=== PATIENT | female | born 1935 | race Caucasian/White ===

== ENCOUNTER 2017-10-05 19:51 | Emergency (ER) | payer MEDICARE, BC | END 2017-10-05 21:50 | disposition home or self-care (01) | LOC: D.ER 19:51 | DX: S01.81XA Laceration without foreign body of other part of head, initial encounter (principal); W19.XXXA Unspecified fall, initial encounter; Y93.89 Activity, other specified; Y92.019 Unspecified place in single-family (private) house as the place of occurrence of the external cause; F03.90 Unspecified dementia, unspecified severity, without behavioral disturbance, psychotic disturbance, mood disturbance, and anxiety ==

== ENCOUNTER 2017-12-24 17:56 | Inpatient (IN) | payer MEDICARE, BC ==
[~2017-12-24] VITALS: Ht 154.9 cm; Wt 50.1 kg
--- NOTE | ~2017-12-24 | OP ---
PATIENT NAME: GERA IGLESIAS MEDICAL RECORD: [id number] :37 LOCATION:[id number] ADMISSION DATE:12/24/17 SURGEON: MAIKEL GOMEZ DO DATE OF OPERATION: 12/25/2017 PROCEDURE PERFORMED: Right hip intramedullary nail. PREOPERATIVE DIAGNOSIS: Displaced right intertrochanteric hip fracture. POSTOPERATIVE DIAGNOSIS: Displaced right intertrochanteric hip fracture. INDICATIONS: Ms. Iglesias is a demented 82-year-old female who fell yesterday onto her right side and sustained a right hip fracture. She was taken to the ER. She is attended to very well by her son. She said she is having frequent falls and is severely demented. Knowing this and knowing that she may not be able to do well, we did not do surgery. He was okay with us proceeding forth of the hip IM nail and told him she will be able to weightbear as tolerated after, but that her percentage chance of mortality about a year after having hip fracture being demented in the 82 is fairly proximal 30%. He was okay with this and understood the risks and benefits of the procedure. The patient was unable to sign the consent for herself, her son did. He has the power of merchandise buyer. SURGEON: Maikel Gomez DO DESCRIPTION OF PROCEDURE: The patient was taken to the operative suite, laid in supine position, given general anesthetic, 1 gram Ancef preoperatively. Timeout was performed. Everyone was in agreeance with the correct side, site, and patient. The patient was then placed in the boots for the [place] table and transferred over to the table, which she was positioned well. The right hip was identified as the correct hip. A reduction was made under C-arm. Once a good reduction was made, the hip had been prepped and draped in sterile fashion. The starting incision was made just proximal to the greater trochanter with a 10 blade and then careful dissection was made down to the greater trochanter itself. A starting pin was put into place and into the intramedullary canal of the femur. Then a starting reamer and opening reamer was used over that and then the guidewire was put into place. A measurement was made to use a 380 mm nail from [employer] nail. After this was done, reaming began, went from a 9 to 10 to 11. The 11 had some chatter, so I decided to put in a 9 nail down and the 9 nail went down and got into good position. The nail was put into place, confirmed distally and proximally, and the lag screw was put in place. A second incision was made where the trocar was entered through the guide and made down to the bone. The guidewire was then shot through the femur into the femoral neck and seen to be in good position on AP and lateral. The reamer was then used to ream over, a 95-mm lag screw was used at that time and compressed. The set screw was then set and then an anti-rotational screw was put into place just above it, measurement of a 75-mm. Once this was put into place and satisfactory, an x-ray on AP and lateral confirmed to be in good position. The perfect [place] was made on the distal locking screws and a 42-mm screw was put in distally. The wounds were then irrigated. The IT band was closed with 0 Vicryl and then the skin was closed with 2-0 Vicryl subcuticular and 4-0 Monocryl ran under the skin subcuticularly and distally two simple inverted interrupted stitches were made with 4-0 Monocryl. The leg was cleaned and Adaptic, 4 x 4s and Tegaderm were placed over each of the 3 incision sites. Blood loss was approximately 100 mL. OPERATIVE REPORT [id number] GERA IGLESIAS COMPLICATIONS: None. TRANSINT:[id number] Voice Confirmation ID: [id number] DOCUMENT ID: [id number] MAIKEL GOMEZ DO at 1816 CC: [id number] DICTATION DATE: 12/25/17 0956 PAPER FINISHER: 12/25/17 1129 ADM IN [facility] [address] [place] [address]
[2017-12-24 19:40] LABS: HEMATOCRIT 46.6 % (36.0-48.0); HEMOGLOBIN 15.7 g/dL (12-16); MCH 32.4 pg (26.0-34.0); MCHC 33.7 g/dL (31.0-37.0); MCV 96.1 fL (80.0-100.0); MEAN PLATELET VOLUME 9.6 fL (7.4-10.4); PLATELET COUNT 242 10x3/uL (130-400); RBC 4.85 10x6/uL (4.00-5.40); RDW 13.7 % (11.5-14.5)
[2017-12-24 19:50] LABS: INR 1.12 (0.85-1.17)
[2017-12-24 19:57] LABS: ALBUMIN 4.1 g/dL (3.4-5.0); ANION GAP 17.9 mmol/L (8-16); BILIRUBIN - TOTAL 1.02 mg/dL (0.2-1.3); CALCIUM 9.8 mg/dL (8.5-10.1); CARBON DIOXIDE 24.7 mmol/L (21.0-32.0); CREATININE - SERUM 1.2 mg/dL (0.6-1.3); POTASSIUM - SERUM 4.6 mmol/L (3.5-5.1); PROTEIN - SERUM 7.2 g/dL (6.4-8.2)
[2017-12-24 20:03] LABS: LYMPHOCYTES 5 % (15-50); NEUTROPHILS 93 % (40-80); PLATELET ESTIMATE NORMAL
[2017-12-24 20:05] LABS: ROULEAUX 1+
[2017-12-24 20:06] LABS: T4 THYROXIN - FREE 1.33 ng/dL (0.76-1.46); THYROID STIMULATING HORMONE 3.22 uIU/mL (0.36-3.74)
[2017-12-24 20:24] LABS: APPEARANCE CLEAR (CLEAR); BILIRUBIN NEGATIVE (NEGATIVE); COLOR YELLOW (YELLOW); GLUCOSE NEGATIVE (NEGATIVE); KETONE NEGATIVE (NEGATIVE); NITRITE NEGATIVE (NEGATIVE); PROTEIN NEGATIVE (NEGATIVE); SPECIFIC GRAVITY 1.015 (1.005-1.020); UROBILINOGEN NORMAL (NORMAL)
[2017-12-25] VITALS (7 sets, daily range): BP systolic 107–128; BP diastolic 63–80; BMI 20.6
[2017-12-25 08:06] LABS: BASOPHILS 0.3 % (0-2); EOSINOPHILS 0.9 % (0-7); HEMATOCRIT 44.7 % (36.0-48.0); HEMOGLOBIN 15.2 g/dL (12-16); IMMATURE GRANULOCYTES 0.4 % (0-5); LYMPHOCYTES 6.2 % (15-50); MCH 32.4 pg (26.0-34.0); MCV 95.3 fL (80.0-100.0); MEAN PLATELET VOLUME 9.2 fL (7.4-10.4); MONOCYTES 6.6 % (2-11); NEUTROPHILS 85.6 % (40-80); PLATELET COUNT 217 10x3/uL (130-400); RBC 4.69 10x6/uL (4.00-5.40); RDW 13.8 % (11.5-14.5)
[2017-12-25 08:11] LABS: WBC 15.9 10x3/uL (4.8-10.8)
[2017-12-25 08:20] LABS: ANION GAP 13.9 mmol/L (8-16); CALCIUM 9.3 mg/dL (8.5-10.1); CARBON DIOXIDE 22.7 mmol/L (21.0-32.0); CREATININE - SERUM 1.2 mg/dL (0.6-1.3); POTASSIUM - SERUM 4.6 mmol/L (3.5-5.1)
[2017-12-26 07:52] VITALS: BP 122/53
[2017-12-26 12:16] VITALS: BP 122/71
[2017-12-26 15:24] VITALS: BP 111/67
[2017-12-26 21:48] VITALS: BP 100/73
[2017-12-27 06:41] LABS: MCH 31.1 pg (26.0-34.0); MCHC 32.6 g/dL (31.0-37.0); MCV 95.5 fL (80.0-100.0); MEAN PLATELET VOLUME 9.6 fL (7.4-10.4)
[2017-12-27 06:56] LABS: HEMATOCRIT 31.6 % (36.0-48.0); HEMOGLOBIN 10.3 g/dL (12-16); RBC 3.31 10x6/uL (4.00-5.40); WBC 9.6 10x3/uL (4.8-10.8)
[2017-12-27 08:57] VITALS: BP 126/77
[2017-12-27 09:44] LABS: ALBUMIN 2.4 g/dL (3.4-5.0); ANION GAP 11.9 mmol/L (8-16); BILIRUBIN - TOTAL 0.77 mg/dL (0.2-1.3); CALCIUM 8.1 mg/dL (8.5-10.1); CARBON DIOXIDE 23.1 mmol/L (21.0-32.0); CREATININE - SERUM 1.2 mg/dL (0.6-1.3); PROTEIN - SERUM 5.3 g/dL (6.4-8.2)
[2017-12-27 12:49] VITALS: BP 131/90
[2017-12-27 14:57] VITALS: Ht 154.9 cm; Wt 50.1 kg
[2017-12-27 20:00] VITALS: BP 137/77
[2017-12-28] VITALS: BP 149/80
[2017-12-28 04:00] VITALS: BP 140/83
[2017-12-28 08:39] VITALS: BP 129/79
[2017-12-28 15:56] VITALS: BP 126/73
[2017-12-28 21:19] VITALS: BP 135/70
[2017-12-29 04:05] VITALS: BP 154/74
[2017-12-29 12:49] LABS: BASOPHILS 0.3 % (0-2); EOSINOPHILS 2.6 % (0-7); HEMOGLOBIN 10.9 g/dL (12-16); IMMATURE GRANULOCYTES 0.7 % (0-5); LYMPHOCYTES 7.8 % (15-50); MCHC 34.1 g/dL (31.0-37.0); MCV 93.8 fL (80.0-100.0); MEAN PLATELET VOLUME 9.5 fL (7.4-10.4); NEUTROPHILS 82.6 % (40-80); RBC 3.41 10x6/uL (4.00-5.40); RDW 13.7 % (11.5-14.5); WBC 10.7 10x3/uL (4.8-10.8)
[2017-12-29 12:51] LABS: PLATELET COUNT 218 10x3/uL (130-400)
[2017-12-29 13:00] VITALS: BP 101/61
[2017-12-29 13:26] LABS: ALBUMIN 2.3 g/dL (3.4-5.0); ANION GAP 11.2 mmol/L (8-16); BILIRUBIN - TOTAL 0.98 mg/dL (0.2-1.3); CARBON DIOXIDE 25.2 mmol/L (21.0-32.0); CREATININE - SERUM 0.9 mg/dL (0.6-1.3); POTASSIUM - SERUM 3.4 mmol/L (3.5-5.1)
[2017-12-29 16:32] VITALS: BP 116/67
[2017-12-29 20:51] VITALS: BP 124/67
[2017-12-30 04:26] VITALS: BP 138/84
[2017-12-30 08:39] VITALS: BP 115/59
[2017-12-30 09:07] LABS: ANION GAP 10.5 mmol/L (8-16); CALCIUM 8.5 mg/dL (8.5-10.1); CARBON DIOXIDE 28.3 mmol/L (21.0-32.0); CREATININE - SERUM 0.9 mg/dL (0.6-1.3)
[2017-12-30 09:11] LABS: POTASSIUM - SERUM 2.8 mmol/L (3.5-5.1)
[2017-12-30 09:14] LABS: BASOPHILS 0.2 % (0-2); EOSINOPHILS 3.7 % (0-7); HEMATOCRIT 32.4 % (36.0-48.0); HEMOGLOBIN 10.9 g/dL (12-16); IMMATURE GRANULOCYTES 0.7 % (0-5); LYMPHOCYTES 9.3 % (15-50); MCH 31.3 pg (26.0-34.0); MCHC 33.6 g/dL (31.0-37.0); MCV 93.1 fL (80.0-100.0); MEAN PLATELET VOLUME 9.8 fL (7.4-10.4); MONOCYTES 7.2 % (2-11); NEUTROPHILS 78.9 % (40-80); RBC 3.48 10x6/uL (4.00-5.40); RDW 13.6 % (11.5-14.5)
[2017-12-30 09:18] LABS: PLATELET COUNT 278 10x3/uL (130-400)
[2017-12-30 12:24] VITALS: BP 122/67
[2017-12-30 20:26] VITALS: BP 140/65
[2017-12-31] VITALS (7 sets, daily range): BP systolic 119–154; BP diastolic 61–84
[2017-12-31 05:33] LABS: BASOPHILS 0.3 % (0-2); EOSINOPHILS 2.5 % (0-7); HEMATOCRIT 30.2 % (36.0-48.0); HEMOGLOBIN 10.1 g/dL (12-16); IMMATURE GRANULOCYTES 1.1 % (0-5); LYMPHOCYTES 7.9 % (15-50); MCH 31.4 pg (26.0-34.0); MCHC 33.4 g/dL (31.0-37.0); MCV 93.8 fL (80.0-100.0); MEAN PLATELET VOLUME 9.9 fL (7.4-10.4); MONOCYTES 7.8 % (2-11); NEUTROPHILS 80.4 % (40-80); RBC 3.22 10x6/uL (4.00-5.40); RDW 13.6 % (11.5-14.5); WBC 10.4 10x3/uL (4.8-10.8)
[2017-12-31 05:45] LABS: PLATELET COUNT 346 10x3/uL (130-400)
[2017-12-31 06:05] LABS: ALBUMIN 2.4 g/dL (3.4-5.0); BILIRUBIN - TOTAL 1.07 mg/dL (0.2-1.3); CALCIUM 8.8 mg/dL (8.5-10.1); CARBON DIOXIDE 28.5 mmol/L (21.0-32.0); CREATININE - SERUM 0.8 mg/dL (0.6-1.3); PROTEIN - SERUM 5.8 g/dL (6.4-8.2)
[2017-12-31 06:12] LABS: POTASSIUM - SERUM 2.5 mmol/L (3.5-5.1)
[2018-01-01 05:20] LABS: BASOPHILS 0.2 % (0-2); EOSINOPHILS 1.4 % (0-7); HEMATOCRIT 30.7 % (36.0-48.0); HEMOGLOBIN 10.2 g/dL (12-16); IMMATURE GRANULOCYTES 1.5 % (0-5); LYMPHOCYTES 8.2 % (15-50); MCH 31.2 pg (26.0-34.0); MCHC 33.2 g/dL (31.0-37.0); MCV 93.9 fL (80.0-100.0); MEAN PLATELET VOLUME 9.4 fL (7.4-10.4); NEUTROPHILS 80.7 % (40-80); PLATELET COUNT 379 10x3/uL (130-400); RBC 3.27 10x6/uL (4.00-5.40); RDW 13.9 % (11.5-14.5); WBC 12.7 10x3/uL (4.8-10.8)
[2018-01-01 06:08] LABS: ALBUMIN 2.5 g/dL (3.4-5.0); BILIRUBIN - TOTAL 1.01 mg/dL (0.2-1.3); CALCIUM 9.1 mg/dL (8.5-10.1); CARBON DIOXIDE 27.5 mmol/L (21.0-32.0); CREATININE - SERUM 0.9 mg/dL (0.6-1.3); POTASSIUM - SERUM 3.5 mmol/L (3.5-5.1); PROTEIN - SERUM 5.6 g/dL (6.4-8.2)
[2018-01-01 08:13] VITALS: BP 124/66
[2018-01-01 10:01] LABS: MAGNESIUM - SERUM 1.7 mg/dL (1.8-2.4); PHOSPHOROUS 2.4 mg/dL (2.5-4.9)
[2018-01-01 12:33] VITALS: BP 115/58
[2018-01-01 16:10] VITALS: BP 109/60
[2018-01-01 19:36] VITALS: BP 122/57
[2018-01-01 23:26] VITALS: BP 127/56
[2018-01-02 04:00] VITALS: BP 140/79
[2018-01-02 05:54] LABS: BASOPHILS 0.3 % (0-2); EOSINOPHILS 4.2 % (0-7); HEMATOCRIT 30.6 % (36.0-48.0); IMMATURE GRANULOCYTES 3.8 % (0-5); LYMPHOCYTES 12.3 % (15-50); MCH 31.2 pg (26.0-34.0); MCHC 32.7 g/dL (31.0-37.0); MCV 95.3 fL (80.0-100.0); MEAN PLATELET VOLUME 9.7 fL (7.4-10.4); MONOCYTES 8.1 % (2-11); NEUTROPHILS 71.3 % (40-80); PLATELET COUNT 409 10x3/uL (130-400); RBC 3.21 10x6/uL (4.00-5.40); RDW 14.4 % (11.5-14.5); WBC 11.9 10x3/uL (4.8-10.8)
[2018-01-02 06:04] LABS: ALBUMIN 2.4 g/dL (3.4-5.0); ANION GAP 7.5 mmol/L (8-16); BILIRUBIN - TOTAL 0.83 mg/dL (0.2-1.3); POTASSIUM - SERUM 3.5 mmol/L (3.5-5.1); PROTEIN - SERUM 5.5 g/dL (6.4-8.2)
[2018-01-02 08:05] VITALS: BP 120/57
[2018-01-02 12:09] VITALS: BP 106/59
[2018-01-02 16:02] VITALS: BP 100/58
[2018-01-02 19:47] VITALS: BP 92/54
[2018-01-03 03:39] VITALS: BP 118/63
[2018-01-03 05:12] LABS: BASOPHILS 0.5 % (0-2); EOSINOPHILS 3.1 % (0-7); HEMATOCRIT 31.8 % (36.0-48.0); HEMOGLOBIN 10.5 g/dL (12-16); IMMATURE GRANULOCYTES 7.3 % (0-5); LYMPHOCYTES 12.2 % (15-50); MCH 32.1 pg (26.0-34.0); MCV 97.2 fL (80.0-100.0); MEAN PLATELET VOLUME 9.8 fL (7.4-10.4); MONOCYTES 6.9 % (2-11); PLATELET COUNT 434 10x3/uL (130-400); RBC 3.27 10x6/uL (4.00-5.40); RDW 14.9 % (11.5-14.5); WBC 13.1 10x3/uL (4.8-10.8)
[2018-01-03 06:00] LABS: ALBUMIN 2.7 g/dL (3.4-5.0); ANION GAP 12.1 mmol/L (8-16); BILIRUBIN - TOTAL 0.81 mg/dL (0.2-1.3); CARBON DIOXIDE 28.2 mmol/L (21.0-32.0); CREATININE - SERUM 1.1 mg/dL (0.6-1.3); POTASSIUM - SERUM 3.3 mmol/L (3.5-5.1); PROTEIN - SERUM 6.1 g/dL (6.4-8.2)
[2018-01-03 08:20] VITALS: BP 107/53
[2018-01-03 12:06] VITALS: BP 109/61
[2018-01-03] MEDS ORDERED: LOVENOX40 MG/0.4 SC (14:55)
[2018-01-03] MEDS ORDERED: ULTRAM50 MG PO (14:55)
== END 2018-01-03 16:22 | DRG 480 ==
LOC: D.ER 17:56 → D.MS 21:45 → D.EDHOLD 21:45 → D.MS 23:59
PROVIDERS: Family Medicine; Orthopaedic Surgery
PROC: 0QS636Z Reposition Right Upper Femur with Intramedullary Internal Fixation Device, Percutaneous Approach (ICD-10-PCS; principal; 2017-12-25 08:00)
DX: S72.141A Displaced intertrochanteric fracture of right femur, initial encounter for closed fracture (principal); E43 Unspecified severe protein-calorie malnutrition; J18.9 Pneumonia, unspecified organism; Z68.1 Body mass index [BMI] 19.9 or less, adult; R64 Cachexia; D62 Acute posthemorrhagic anemia; W19.XXXA Unspecified fall, initial encounter; Z66 Do not resuscitate; G30.9 Alzheimer's disease, unspecified; F02.80 Dementia in other diseases classified elsewhere, unspecified severity, without behavioral disturbance, psychotic disturbance, mood disturbance, and anxiety; R00.0 Tachycardia, unspecified; E87.6 Hypokalemia; E11.22 Type 2 diabetes mellitus with diabetic chronic kidney disease; N18.3 Chronic kidney disease, stage 3 (moderate)

== ENCOUNTER 2018-03-28 13:32 | Inpatient (IN) | payer MEDICARE, BC ==
[~2018-03-28] VITALS: Ht 154.9 cm; Wt 47.6 kg
[~2018-03-28 13:32] MED LIST: LOVENOX40 MG/0.4 SC; ULTRAM50 MG PO
[2018-03-28 15:12] LABS: BASOPHILS 0.3 % (0-2); EOSINOPHILS 2.7 % (0-7); HEMATOCRIT 44.5 % (36.0-48.0); HEMOGLOBIN 14.9 g/dL (12-16); IMMATURE GRANULOCYTES 0.5 % (0-5); LYMPHOCYTES 9.9 % (15-50); MCH 31.8 pg (26.0-34.0); MCHC 33.5 g/dL (31.0-37.0); MCV 94.9 fL (80.0-100.0); MEAN PLATELET VOLUME 9.2 fL (7.4-10.4); MONOCYTES 7.1 % (2-11); NEUTROPHILS 79.5 % (40-80); PLATELET COUNT 261 10x3/uL (130-400); RBC 4.69 10x6/uL (4.00-5.40); RDW 13.3 % (11.5-14.5); WBC 15.3 10x3/uL (4.8-10.8)
[2018-03-28 15:27] LABS: ALBUMIN 3.6 g/dL (3.4-5.0); ANION GAP 12.4 mmol/L (8-16); BILIRUBIN - TOTAL 0.63 mg/dL (0.2-1.3); CALCIUM 9.2 mg/dL (8.5-10.1); CARBON DIOXIDE 25.7 mmol/L (21.0-32.0); CREATININE - SERUM 1.1 mg/dL (0.6-1.3); POTASSIUM - SERUM 4.1 mmol/L (3.5-5.1); PROTEIN - SERUM 7.1 g/dL (6.4-8.2)
[2018-03-28 17:17] LABS: APPEARANCE HAZY (CLEAR); BILIRUBIN NEGATIVE (NEGATIVE); COLOR YELLOW (YELLOW); GLUCOSE NEGATIVE (NEGATIVE); KETONE NEGATIVE (NEGATIVE); NITRITE NEGATIVE (NEGATIVE); PROTEIN TRACE mg/dL (NEGATIVE); UROBILINOGEN NORMAL (NORMAL)
[2018-03-28 17:18] LABS: BACTERIA MODERATE /hpf (NONE SEEN); EPITHELIAL CELLS 0-5 /hpf (0-5); RED CELLS - URINE 0-5 /hpf (0-5); WHITE CELLS - URINE >50 /hpf (0-5)
[2018-03-29 02:24] VITALS: BP 145/62; BMI 19.8
[2018-03-29 05:52] VITALS: BP 135/75
[2018-03-29 05:59] LABS: BASOPHILS 0.3 % (0-2); EOSINOPHILS 2.9 % (0-7); HEMATOCRIT 44.6 % (36.0-48.0); HEMOGLOBIN 15.1 g/dL (12-16); IMMATURE GRANULOCYTES 0.7 % (0-5); LYMPHOCYTES 7.7 % (15-50); MCH 31.6 pg (26.0-34.0); MCHC 33.9 g/dL (31.0-37.0); MCV 93.3 fL (80.0-100.0); MEAN PLATELET VOLUME 9.3 fL (7.4-10.4); MONOCYTES 6.5 % (2-11); NEUTROPHILS 81.9 % (40-80); PLATELET COUNT 249 10x3/uL (130-400); RBC 4.78 10x6/uL (4.00-5.40); RDW 12.9 % (11.5-14.5); WBC 11.5 10x3/uL (4.8-10.8)
[2018-03-29 06:37] LABS: ANION GAP 13.9 mmol/L (8-16); CALCIUM 9.3 mg/dL (8.5-10.1); CARBON DIOXIDE 24.9 mmol/L (21.0-32.0); CREATININE - SERUM 1.1 mg/dL (0.6-1.3); POTASSIUM - SERUM 3.8 mmol/L (3.5-5.1)
[2018-03-29 09:44] VITALS: BP 104/54
[2018-03-29 10:43] VITALS: Ht 154.9 cm; Wt 47.6 kg
[2018-03-29 14:44] VITALS: BP 146/73
== END 2018-03-29 18:00 | disposition home health service (06) | DRG 551 ==
LOC: D.ER 13:32 → D.EDHOLD 14:38 → D.MS 18:55 → OBSVTIME 19:00 → D.MS 03-29 15:31
PROVIDERS: Family Medicine
DX: S22.069A Unspecified fracture of T7-T8 vertebra, initial encounter for closed fracture (principal); E43 Unspecified severe protein-calorie malnutrition; N39.0 Urinary tract infection, site not specified; Z68.1 Body mass index [BMI] 19.9 or less, adult; R64 Cachexia; W19.XXXA Unspecified fall, initial encounter; M51.26 Other intervertebral disc displacement, lumbar region; F03.90 Unspecified dementia, unspecified severity, without behavioral disturbance, psychotic disturbance, mood disturbance, and anxiety; E11.9 Type 2 diabetes mellitus without complications; S00.83XA Contusion of other part of head, initial encounter; E11.22 Type 2 diabetes mellitus with diabetic chronic kidney disease; N18.3 Chronic kidney disease, stage 3 (moderate)